=== PATIENT | female | born 1960 | race Two or more races ===

== ENCOUNTER 2023-06-28 10:00 | Emergency (ER) | payer BC ==
[~2023-06-28] VITALS: Ht 167.6 cm; Wt 68.0 kg
== END 2023-06-28 13:22 | disposition home or self-care (01) ==
LOC: ER 10:00
DX: S52.022A Displaced fracture of olecranon process without intraarticular extension of left ulna, initial encounter for closed fracture (principal); W19.XXXA Unspecified fall, initial encounter; Y93.89 Activity, other specified; Y92.59 Other trade areas as the place of occurrence of the external cause; Y99.9 Unspecified external cause status; Z88.8 Allergy status to other drugs, medicaments and biological substances